=== PATIENT | male | born 1950 | race Caucasian/White ===

== ENCOUNTER 2021-10-19 07:41 | Day surgery (SDC) | payer OTHER, BC ==
[2021-10-13 12:07] VITALS: BMI 29.5
[2021-10-19 11:45] VITALS: BP 132/82; PULSE 64; TEMP 97
== END 2021-10-19 11:26 | disposition home or self-care (01) ==
LOC: FASU-ENDO 07:41
PROVIDERS: ATTEND Internal Medicine Gastroenterology
PROC: 0DJD8ZZ Inspection of Lower Intestinal Tract, Via Natural or Artificial Opening Endoscopic (ICD-10-PCS; principal; 2021-10-19 09:31)
DX: Z12.11 Encounter for screening for malignant neoplasm of colon (principal); K57.30 Diverticulosis of large intestine without perforation or abscess without bleeding